=== PATIENT | male | born 1960 | race Caucasian/White ===

== ENCOUNTER 2016-04-09 09:18 | Outpatient (CLI) | payer MEDICARE, OTHER | END 2016-04-09 09:21 | LOC: POD 09:18 | PROVIDERS: ATTEND Podiatrist Public Medicine | DX: E11.9 Type 2 diabetes mellitus without complications (principal); L84 Corns and callosities; M79.671 Pain in right foot; M79.672 Pain in left foot; B35.1 Tinea unguium | CPT/HCPCS: G0463 ==

== ENCOUNTER 2016-08-22 08:31 | Outpatient (CLI) | payer MEDICARE, OTHER | END 2016-08-22 08:32 | LOC: LAB 08:31 | PROVIDERS: ATTEND Nurse Practitioner Family | DX: E29.1 Testicular hypofunction (principal) | CPT/HCPCS: 36415; 84403 ==